=== PATIENT | male | born 1990 | race Two or more races ===

== ENCOUNTER 2020-07-04 18:57 | Emergency (ER) | payer OTHER ==
[~2020-07-04] VITALS: Ht 160 cm; Wt 80.7 kg
[2020-07-04 18:58] VITALS: BP 156/78
[2020-07-04] MEDS ORDERED: MECLIZINE HCL 25 MG TAB PO ONE (19:30)
[2020-07-04] MEDS ORDERED: ONDANSETRON ODT 4 MG TAB PO ONE (19:30)
== END 2020-07-04 23:26 | disposition home or self-care (01) ==
LOC: ER 18:59
DX: R42 Dizziness and giddiness (principal)
CPT/HCPCS: 70450; 93005; 99284; J8597; Q0162